=== PATIENT | female | born 1940 | race Caucasian/White ===

== ENCOUNTER → 2022-01-14 | Outpatient (CLI) | payer MEDICARE, OTHER | LOC: RAD 11:56 | DX: M79.604 Pain in right leg (principal); M79.605 Pain in left leg | CPT/HCPCS: 93970 ==

== ENCOUNTER → 2022-05-08 | Outpatient (CLI) | payer MEDICARE, OTHER | LOC: MAMMO 08:46 | PROVIDERS: ATTEND Internal Medicine | DX: R92.8 Other abnormal and inconclusive findings on diagnostic imaging of breast (principal) ==

== ENCOUNTER → 2023-01-15 | Outpatient (REF) | payer MEDICARE, OTHER | LOC: MAMMO 09:43 | PROVIDERS: ATTEND Internal Medicine | DX: R92.2 Inconclusive mammogram (principal) ==

== ENCOUNTER → 2023-11-05 | Outpatient (REF) | payer MEDICARE, OTHER | LOC: MAMMO 08:20 | PROVIDERS: ATTEND Internal Medicine | DX: R92.8 Other abnormal and inconclusive findings on diagnostic imaging of breast (principal) | CPT/HCPCS: 77066 ==

== ENCOUNTER → 2024-11-25 | Outpatient (REF) | payer MEDICARE, OTHER | LOC: MAMMO 08:24 | PROVIDERS: ATTEND Internal Medicine | DX: Z12.31 Encounter for screening mammogram for malignant neoplasm of breast (principal) | CPT/HCPCS: 77067 ==